=== PATIENT | male | born 1985 | race Hispanic/Latino ===

== ENCOUNTER 2019-03-05 16:59 | Emergency (ER) | payer MEDICARE ==
[~2019-03-05] VITALS: Ht 175.3 cm; Wt 86.2 kg
--- OUTSIDE RECORDS SUMMARY | 2019-03-05 17:02 | XMS REPORT ---
Author [facility] Address Unknown Phone Unavailable Care Team Providers Care Tray Line Worker Name Role Phone Unavailable Unavailable Payers Payer Name Policy Type Policy Number Effective Date Expiration Date Problems This patient has no known problems. Allergies, Adverse Reactions, Alerts Allergy Name Allergy Type Status Severity Reaction(s) Onset Date Inactive Date Treating Clinician Comments No Known Allergies DA Active U 2014-12-09 00:00:00 Medications This patient has no known medications.
[2019-03-05] MEDS ORDERED: TRAMADOL HCL 50 MG TAB PO NR (17:30)
--- NOTE | 2019-03-05 17:48 | NUR ---
MEDICATED FOR LEFT KNEE PAIN WITH TRAMADOL 50MG. X-RAY IN ROOM
[2019-03-05] MEDS ORDERED: ULTRAM50 MG PO (18:34)
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
== END 2019-03-05 19:30 | disposition home or self-care (01) ==
LOC: EDBD 16:59 → ER 16:59
DX: S80.02XA Contusion of left knee, initial encounter (principal); S70.312A Abrasion, left thigh, initial encounter; M25.462 Effusion, left knee; W20.8XXA Other cause of strike by thrown, projected or falling object, initial encounter; Y93.89 Activity, other specified; Y92.015 Private garage of single-family (private) house as the place of occurrence of the external cause; H91.3 Deaf nonspeaking, not elsewhere classified; Z82.49 Family history of ischemic heart disease and other diseases of the circulatory system; I10 Essential (primary) hypertension
CPT/HCPCS: 99284